=== PATIENT | female | born 1995 | race Caucasian/White ===

== ENCOUNTER 2020-11-28 00:14 | Emergency (ER) | payer OTHER, SELFPAY ==
[2020-11-28 00:19] VITALS: BP 148/97; PULSE 93; RESP 20; TEMP 36.1; O2SAT 96
[2020-11-28] MEDS: LIDO 1%/EPINEPHRINE 1:100,000 50 ML VIAL 10 ML INFILTRATE (00:43)
--- NOTE | 2020-11-28 01:10 | ED_ITS ---
HPI - Fall General Chief Complaint: Fall Stated Complaint: intoxicated, fell Time Seen by Provider: 11/28/20 00:26 History of Present Illness HPI Narrative: Patient is a 24-year-old female who presents the ER with laceration to the left knee. Patient was walking down some steps carrying crockpot when she misstepped and struck her knee on the ground. She has been able to walk. Lacerations 3.5 cm and superficial. She did not strike her head or lose consciousness. Bleeding controlled. Tetanus up-to-date. Related Data Allergies Allergy/AdvReac Type Severity Reaction Status Date / Time No Known Allergies Allergy Verified 11/28/20 00:24 Review of Systems Integumentary/Breasts: Skin/Breast: Reports erythema Comments: Laceration Neurologic: Denies syncope, Denies focal weakness and Denies numbness PMFSH Past Medical History Medical History (Updated 11/28/20 @ 01:16 by Dustin Dias MD) Healthy female adult Surgical History Surgical History (Updated 11/28/20 @ 01:16 by Dsutin Dias MD) H/O plastic surgery Social History Social History (Updated 11/28/20 @ 01:16 by Dustin Dias MD) Alcohol intake: current Exam Narrative: Exam Narrative: GENERAL: Tearful-appearing, well-nourished, and in no acute distress. HEAD: Normocephalic, atraumatic. EXTREMITIES: Normal range of motion. No edema. Left knee with 3.5 laceration over the kneecap. There is additional second superficial abrasion. SKIN: Warm, dry, no rash. As noted above. NEURO: Alert and oriented x3. PSYCH: Anxious and tearful but otherwise normal thought content. Course Vital Signs Vital signs: Vital Signs Temperature 96.9 F L 11/28/20 00:19 Pulse Rate 93 11/28/20 00:19 Respiratory Rate 20 11/28/20 00:19 Blood Pressure 148/97 H 11/28/20 00:19 Pulse Oximetry 96 11/28/20 00:19 Temperature 96.9 F L 11/28/20 00:19 Pulse Rate 93 11/28/20 00:19 Respiratory Rate 20 11/28/20 00:19 Blood Pressure 148/97 H 11/28/20 00:19 Pulse Oximetry 96 11/28/20 00:19 Procedures Laceration Laceration 1: Date: 11/28/20 Time: 01:03 Site: other (knee) Side (If applicable): left Size (cm): 3.5 Description: linear Depth: simple, single layer Local Anesthetic: lidocaine 1% and with epi Amount of anesthesia used (mL): 6 Pre-repair: wound explored, irrigated and deep structures intact ====== Skin Level ====== Skin layer closed with: nylon Size (cm): 3-0 Number of sutures: 5 Technique: simple, interrupted ====== Subcutaneous Layer ====== ====== Muscle Layer ====== ====== Tendon Layer ====== Discharge Plan Discharge Clinical Impression: Laceration Patient Disposition: Home, Self-Care Condition: Stable Instructions: Care For Your Stitches (ED), Laceration (ED) Additional Instructions: Return to the ER if your wound becomes red and hot, is draining pus, you develop fever over 100.4 ?F. Remove your sutures in 2 weeks. Follow-up/Referrals: Dyana Clemens MD [Physician] - 2 Weeks PHYSICIAN,MANAGER PSYCHIATRY [Primary Care Provider] -
== END 2020-11-28 01:25 | disposition home or self-care (01) ==
PROVIDERS: Emergency Provider Emergency Medicine
DX: S81.012A Laceration without foreign body, left knee, initial encounter (principal); W10.9XXA Fall (on) (from) unspecified stairs and steps, initial encounter
CPT/HCPCS: 12002; 99282